=== PATIENT | male | born 1950 | race Two or more races ===

== ENCOUNTER 2020-11-28 13:00 | Inpatient (IN) | payer OTHER ==
[~2020-11-28] VITALS: Ht 165.1 cm; Wt 63.5 kg
[2020-12-03] MEDS ORDERED: ATORVASTATIN CA20 MG (11:50)
== END 2020-12-06 13:04 | disposition home or self-care (01) | DRG 330 ==
LOC: ADM 13:00 → EDSTATUS 13:00 → EDSEX 12-03 07:30 → SURH 12-03 07:30 → O/R 12-03 07:30 → SURH 12-03 10:00
PROVIDERS: ADMIT Colon & Rectal Surgery; ATTEND Colon & Rectal Surgery
PROC: 0DBP4ZZ Excision of Rectum, Percutaneous Endoscopic Approach (ICD-10-PCS; 2020-12-03)
PROC: 0DSM4ZZ Reposition Descending Colon, Percutaneous Endoscopic Approach (ICD-10-PCS; 2020-12-03)
PROC: 0WQF4ZZ Repair Abdominal Wall, Percutaneous Endoscopic Approach (ICD-10-PCS; 2020-12-03)
PROC: 0DTN4ZZ Resection of Sigmoid Colon, Percutaneous Endoscopic Approach (ICD-10-PCS; principal; 2020-12-03 10:00)
DX: K57.32 Diverticulitis of large intestine without perforation or abscess without bleeding (principal); K92.1 Melena; K43.2 Incisional hernia without obstruction or gangrene; R33.9 Retention of urine, unspecified; Z43.3 Encounter for attention to colostomy